=== PATIENT | female | born 1940 | race Caucasian/White ===

== ENCOUNTER 2018-10-04 11:58 | Observation (INO) | payer MEDICARE ==
[~2018-10-04] VITALS: Ht 167.6 cm; Wt 74.0 kg
[~2018-10-04 11:58] MED LIST: CALCIUM600 MG; IRBESARTAN150 MG PO; K DUR10 MEQ PO; LASIX20 MG PO; OMEPRAZOLE40 MG; TRIAMTERENE-HC1 EAC1
[2018-10-04] MEDS ORDERED: NITROGLYCERIN 2% OINT 1 GM PKT TOP ONE (12:15)
[2018-10-04] MEDS ORDERED: ONDANSETRON HCL INJ 2MG/ML 2ML 2 MG/ML VIAL IV PRN ×2 (12:15→13:15)
[2018-10-04 12:23] LABS: BASOPHILS # (AUTO) 0.1 (0.0-0.1); BASOPHILS % 1.1 % (0.0-1.0); EOSINOPHILS # (AUTO) 0.1 (0.0-0.4); EOSINOPHILS % 1.8 % (0.0-6.0); HEMOGLOBIN 13.5 g/dL (12.0-16.0); LYMPHOCYTES % 31.2 % (18.0-39.1); MEAN CORPUSCULAR HEMOGLOBIN 28.8 pg (28-32); MEAN CORPUSCULAR HGB CONC 33.8 g/dL (31-35); MEAN CORPUSCULAR VOLUME 85.3 fL (81-99); MONOCYTES # (AUTO) 0.7 (0.2-0.8); NEUTROPHILS # (AUTO) 3.6 (2.1-6.9); NEUTROPHILS % 55.6 % (38.7-80.0); PLATELET COUNT 357 x10e3/uL (140-360); RED BLOOD COUNT 4.69 x10e6/uL (3.6-5.1); RED CELL DISTRIBUTION WIDTH 13.4 % (11.7-14.4)
[2018-10-04 12:46] LABS: ALANINE AMINOTRANSFERASE 16 IU/L (0-55); ALBUMIN/GLOBULIN RATIO 1.1 (0.8-2.0); ALKALINE PHOSPHATASE 104 IU/L (40-150); AMYLASE 55 U/L (25-125); ANION GAP 14.9 mmol/L (8-16); BLOOD UREA NITROGEN 13 mg/dL (7-26); BUN/CREATININE RATIO 15 (6-25); CALCIUM 9.7 mg/dL (8.4-10.2); CARBON DIOXIDE 27 mmol/L (22-29); CHLORIDE 97 mmol/L (98-107); CREATINE KINASE 122 IU/L (29-168); CREATININE, SERUM 0.86 mg/dL (0.57-1.11); EST GLOMERULAR FILTRATION RATE > 60 ML/MIN (60-); GLUCOSE 84 mg/dL (74-118); LIPASE 24 U/L (8-78); POTASSIUM 3.9 mmol/L (3.5-5.1); SODIUM 135 mmol/L (136-145)
--- NOTE | 2018-10-04 12:46 | Diagnostic Imaging Report ---
EXAMINATION: CHEST SINGLE (PORTABLE) INDICATION: Chest pain COMPARISON: None FINDINGS: TUBES and LINES: None. LUNGS: The lungs are well-inflated. Mild biapical pleural parenchymal thickening/scarring. No focal consolidation or pulmonary edema. PLEURA: No pleural effusion or pneumothorax. HEART AND MEDIASTINUM: The cardiomediastinal silhouette is normal in size and contour. BONES AND SOFT TISSUES: No acute fracture or dislocation. UPPER ABDOMEN: No free air under the diaphragm. IMPRESSION: No focal pneumonia or pulmonary edema. Signed by: Chun Gibson MD on 10/04/2018 12:43 PM
--- NOTE | 2018-10-04 12:50 | Diagnostic Imaging Report ---
Exam: Head CT without contrast History: Memory loss of vision in left eye, felt like passing out, possible TIA Comparison studies: No prior exam is available on the PACS for comparison the time of dictation. Technique: Axial images were obtained from the skull base to the vertex. Coronal and sagittal images reconstructed from the axial data. Dose modulation, iterative reconstruction, and/or weight based adjustment of the mA/kV was utilized to reduce the radiation dose to as low as reasonably achievable. Radiation dose: Total DLP: 921 mGy*cm. Estimated effective dose: DLP x 0.015 Intravenous contrast: None Findings: Scalp: No abnormalities. Bones: No fractures, blastic or lytic lesions. Brain sulci: Appropriate for age. Ventricles: Normal in size and configuration. No hydrocephalus. Extra-axial spaces: No masses, no fluid collection. Parenchyma: No mass, acute hemorrhage or acute or chronic cortical insults. A few hypodensities in the supratentorial white matter which are mildly confluent in the bilateral periatrial white matter are nonspecific most compatible with chronic microvascular ischemic changes. Sellar/suprasellar region: No abnormalities. Craniocervical junction: Patent foramen magnum. No Chiari one malformation. Incidental findings: Atherosclerotic calcifications in the carotid siphons. IMPRESSION: 1. No acute intracranial abnormalities. 2. Chronic microvascular ischemic changes which are mildly confluent in the periatrial periventricular white matter. Signed by: Dr. Galindo Golden M.D. on 10/04/2018 12:47 PM
[2018-10-04] MEDS ORDERED: FAMOTIDINE 20 MG/2 ML VIAL IV ONE (13:00)
[2018-10-04] MEDS ORDERED: ACETAMINOPHEN 325 MG TAB PO ONE (13:00)
[2018-10-04] MEDS ORDERED: SODIUM CHLORIDE 0.9% 500ML 500 ML IV STA (13:09)
[2018-10-04] MEDS ORDERED: ENALAPRILAT IV INJ 1.25 MG/ML VIAL IV PRN (13:15)
[2018-10-04] MEDS ORDERED: DIPHENHYDRAMINE HCL INJ 50 MG/ML VIAL IV PRN (13:15)
[2018-10-04] MEDS ORDERED: NITROGLYCERIN 0.4 MG SUBL SL PRN (13:15)
[2018-10-04] MEDS ORDERED: ACETAMINOPHEN 325 MG TAB PO PRN (13:15)
[2018-10-04] MEDS ORDERED: ZOLPIDEM TARTRATE 5 MG TAB PO PRN (13:15)
[2018-10-04] MEDS ORDERED: MORPHINE SULFATE INJ 4 MG/ML INJ 1ML IV PRN (13:15)
[2018-10-04] MEDS ORDERED: SODIUM CHLORIDE FLUSH 10 ML SYR INJ PRN (13:15)
[2018-10-04] MEDS ORDERED: TORSEMIDE10 MG PO (13:33)
[2018-10-04] MEDS ORDERED: MAGNESIUM500 MG PO (13:33)
[2018-10-04] MEDS ORDERED: CALCIUM 500+D1 EACH PO (13:33)
[2018-10-04] MEDS ORDERED: LOSARTAN POTASS25 MG PEG (13:33)
[2018-10-04] MEDS ORDERED: PANTOPRAZOLE SO40 MG PO (13:33)
[2018-10-04] MEDS ORDERED: AMLODIPINE BESYL5 MG PO (13:33)
[2018-10-04] MEDS ORDERED: PRESERVISION T1 EACH PO (13:34)
--- NOTE | 2018-10-04 14:00 | NUR ---
received pt in stretcher from ER, able to walk from stretcher to bed safely. AAOx4, Resp even and unlabored. denies pain at this time. oriented to room and use of call light, call light placed within reach.
[2018-10-04 14:05] VITALS: BP 172/71
[2018-10-04 14:30] VITALS: BP 172/71
[2018-10-04] MEDS ORDERED: HYDRALAZINE HCL 20 MG/ML VIAL IV PRN (15:30)
[2018-10-04 16:21] VITALS: BP 157/67
[2018-10-04] MEDS ORDERED: FAMOTIDINE 20 MG/2 ML VIAL IV SCH (17:00)
[2018-10-04 17:13] VITALS: BP 157/67
--- NOTE | 2018-10-04 18:33 | Diagnostic Imaging Report ---
Ventilation/perfusion lung scan Clinical Information: ^Chest pain, high D-dimer Comparison: Chest radiograph 10/04/2018 Discussion: Xenon-133 gas 8.4 mCi was administered via inhalation. Dynamic images of the lungs in the posterior projection were obtained through single breath, equilibrium, and washout phases. Distribution of tracer activity is irregular throughout the lungs. There are no segmental ventilatory defects. Washout of tracer is diffusely delayed without air trapping. Perfusion images of the lungs were obtained in multiple projections following intravenous administration of approximately 8.6 mCi of Tc-99m MAA. Distribution of tracer is irregular throughout the lungs. The contours of the lungs are well demarcated. There are no segmental perfusion defects of any size. The cardiomediastinal silhouette is unremarkable. Impression: Scan findings represent a VERY LOW probability for acute pulmonary embolic disease based on the PIOPED II criteria. Scan evidence of obstructive lung disease. Signed by: Dr. Salena Dennis M.D. on 10/04/2018 6:29 PM
[2018-10-04 20:00] VITALS: BP 143/67
[2018-10-04] MEDS ORDERED: NIFEDIPINE CR 30 MG TAB PO SCH (21:00)
[2018-10-04] MEDS ORDERED: SIMVASTATIN 40 MG TAB PO SCH (21:00)
[2018-10-04 21:12] LABS: CREATINE KINASE MB 1.6 ng/mL (0-5.0)
[2018-10-04 22:40] VITALS: BP 143/67
--- NOTE | 2018-10-04 23:28 | Consultation ---
DATE OF CONSULTATION: 10/04/2018 Cardiology Consultation REASON FOR CONSULTATION: Chest pain. HISTORY OF PRESENT ILLNESS: Ms. Wing is a 78-year-old female with past medical history of hypertension, who presents to this institution with episodic chest pain. She reports left parasternal to left-sided chest pain, sharp sensation, moderate in intensity lasting several seconds up to a minute of time and sporadic. She had an episode last night, which prompted her to come to the hospital. She reports two more episodes here once earlier in the morning and in the afternoon. All episodes are not related to activity, positions, and reports that is nonpleuritic in nature. She denies any subjective palpitations, syncope, or near syncope. We had a long discussion today in terms of differential diagnosis to this chest pain. She denies any recent travels. Her legs cramp off and on, but denies any overt leg swelling. In terms of labs, she has had thus far strongly negative cardiac enzymes with a troponin of 0.00 for an EKG without any signs of ischemic EKG changes; however, D-dimer was marginally elevated. Cardiology consultation was obtained. PAST MEDICAL HISTORY: 1. Hypertension, essential. 2. GERD. PAST SURGICAL HISTORY: 1. History of partial hysterectomy in the remote past. 2. History of hand surgery in the remote past. FAMILY HISTORY: Mother in her 60s from a motor vehicle accident. Father at age of 62 from a heart attack. One brother who is older in age in his 80s with a pacemaker. SOCIAL HISTORY: She is a lifelong nonsmoker. Denies any alcohol or illicit drug use. ALLERGIES: INCLUDE CONTRAST IODINE DURING AN IVP PROCEDURE. HOME MEDICATIONS: Include Norvasc 5 mg daily, beta-carotene daily, calcium, vitamin D tablet supplement daily, losartan 25 mg daily, torsemide 10 mg p.r.n., omeprazole 40 mg daily, and Protonix 40 mg daily. REVIEW OF SYSTEMS: GENERAL: Denies any fevers, chills, or any weight changes. HEENT: No headaches, visual complaints, sore throat, or stuffy nose. RESPIRATORY: Denies any pleuritic component to the chest pain. No shortness of breath. No cough. CARDIOVASCULAR: As per HPI. GI: Has occasional GERD. No bright red blood per rectum, melena, or hematemesis. : Denies any dysuria, pyuria, or change in urinary frequency. MUSCULOSKELETAL: Has minor arthritis in her hands. HEMATOLOGY: Positive for easy bruising. No bleeding. ID: No known infectious issues. ENDOCRINE: Denies any heat or cold intolerance. NEUROLOGIC: Denies any focal weakness, numbness, tingling, seizures, headache, TIA, or stroke. Remainder of review of systems negative, otherwise as mentioned. PHYSICAL EXAMINATION: VITAL SIGNS: Height of 66 inches, weight of 177 pounds, BMI is 28.6, temperature of 97.5, pulse of 55, respiratory rate 18, blood pressure 157/67, and O2 saturation 98% on room air. GENERAL: This is a well-nourished, well-developed lady, who appears younger than stated age. She is currently in no apparent distress. HEENT: Normocephalic and atraumatic. Pupils are equal, round, and reactive to light. Extraocular movements are intact. Oropharynx is clear. NECK: No elevation of jugular venous pulsation. No carotid bruits. CARDIOVASCULAR: Regular rate and rhythm. Normal S1, S2. Soft 2/6 systolic murmur at the left lower sternal border. LUNGS: Largely clear to auscultation bilaterally with good air entry. ABDOMEN: Soft, nontender, and nondistended. Normoactive bowel sounds. No hepatosplenomegaly. BACK: No costovertebral angle tenderness. EXTREMITIES: Warm with no edema. There are 2+ bilateral femoral pulses, 2+ radial pulses, and 1+ pedal pulses. There is no edema. NEUROLOGIC: Cranial nerves II through XII are intact. Strength is 5/5. Grossly nonfocal. PSYCH: Normal fluent speech. Appropriate affect. No anxiety or delusions. LABORATORY DATA: White count 6.5, hemoglobin 13.5, hematocrit 40.0, and platelets of 357. Sodium 135, potassium 3.9, chloride 97, bicarb 27, BUN 13, creatinine 0.86, glucose of 84, AST 21, ALT 16, alkaline phosphatase 104, total protein 7.6, albumin 4.0, amylase 55, lipase 24. TSH 1.701. D-dimer 1.04. Brain CT shows chronic microvascular ischemic changes. Chest x-ray is unremarkable. EKGs are unremarkable. Cardiac biomarkers shows CK of 122, MB of 1.8, troponin 0.004. DIAGNOSES: 1. Atypical chest pain. 2. Elevated D-dimer. 3. Hypertension, essential. 4. Venous insufficiency. RECOMMENDATIONS: 1. From a cardiovascular standpoint, we had a long discussion with the patient today in terms of various causes of chest pain and different management options. 2. The patient is in favor of stress testing. We will proceed with exercise treadmill stress test tomorrow morning in light of her V/Q scan that she received. 3. Lower extremity venous duplex reviewed, showing no DVT. 4. Echocardiogram reveals normal left ventricular function and some mild hypertrophy. 5. Telemetry monitoring. 6. We will check cardiac enzymes in the morning and proceed with stress test tomorrow a.m. for ischemic risk stratification. MD ALISON Man/MARIELAL /[id number]
[2018-10-05] VITALS: BP 111/53
[2018-10-05 04:35] VITALS: BP 123/61
[2018-10-05 05:41] LABS: BASOPHILS # (AUTO) 0.1 (0.0-0.1); BASOPHILS % 1.3 % (0.0-1.0); EOSINOPHILS # (AUTO) 0.2 (0.0-0.4); EOSINOPHILS % 3.6 % (0.0-6.0); HEMATOCRIT 36.6 % (34.2-44.1); LYMPHOCYTES # (AUTO) 2.2 (1.0-3.2); LYMPHOCYTES % 38.6 % (18.0-39.1); MEAN CORPUSCULAR HGB CONC 32.8 g/dL (31-35); MEAN CORPUSCULAR VOLUME 85.3 fL (81-99); MONOCYTES # (AUTO) 0.7 (0.2-0.8); MONOCYTES % 13.1 % (4.4-11.3); NEUTROPHILS # (AUTO) 2.4 (2.1-6.9); NEUTROPHILS % 43.2 % (38.7-80.0); PLATELET COUNT 298 x10e3/uL (140-360); RED BLOOD COUNT 4.29 x10e6/uL (3.6-5.1); RED CELL DISTRIBUTION WIDTH 13.4 % (11.7-14.4)
[2018-10-05 05:54] LABS: INR 0.92; PROTHROMBIN TIME 12.9 seconds (11.9-14.5)
[2018-10-05 06:02] LABS: CHOL/HDL RATIO 3.8 (3.0-3.6); MAGNESIUM 2.3 MG/DL (1.3-2.1); PHOSPHORUS 4.1 MG/DL (2.3-4.7)
[2018-10-05 06:08] LABS: ALANINE AMINOTRANSFERASE 14 IU/L (0-55); ALBUMIN 3.3 g/dL (3.5-5.0); ALBUMIN/GLOBULIN RATIO 1.1 (0.8-2.0); ALKALINE PHOSPHATASE 91 IU/L (40-150); BLOOD UREA NITROGEN 14 mg/dL (7-26); BUN/CREATININE RATIO 18 (6-25); CALCIUM 9.3 mg/dL (8.4-10.2); CARBON DIOXIDE 27 mmol/L (22-29); CHLORIDE 101 mmol/L (98-107); EST GLOMERULAR FILTRATION RATE > 60 ML/MIN (60-); GLUCOSE 83 mg/dL (74-118); SODIUM 134 mmol/L (136-145)
[2018-10-05 06:09] LABS: CREATINE KINASE 100 IU/L (29-168)
--- NOTE | 2018-10-05 07:00 | NUR ---
BEDSIDE SHIFT REPORT RECEIVED FROM THE STAFFING BRANCH MANAGER RN. PT IS ON NPO. PT DENIES NEEDS AT THIS TIME.
[2018-10-05 08:03] VITALS: BP 147/74
[2018-10-05 09:00] VITALS: BP 151/67
[2018-10-05] MEDS ORDERED: ASPIRIN 325 MG TAB EC PO SCH (09:00)
[2018-10-05] MEDS ORDERED: LISINOPRIL 10 MG TAB PO SCH (09:00)
--- NOTE | 2018-10-05 10:00 | NUR ---
OKAY TO GIVE MORNING MEDS PER DR. Keron BRAGG.
--- NOTE | 2018-10-05 10:35 | NUR ---
PT OFF UNIT FOR PROCEDURE IN SAFE CONDITION.
--- NOTE | 2018-10-05 10:40 | NUR ---
PT BACK TO UNIT. PROCEDURE RESCHEDULED.
[2018-10-05 11:35] VITALS: BP 168/79
--- NOTE | 2018-10-05 12:30 | NUR ---
PT OFF UNIT FOR PROCEDURE IN SAFE CONDITION.
--- NOTE | 2018-10-05 13:20 | NUR ---
PT BACK TO UNIT AFTER PROCEDURE. OKAY TO RESUME DIET PER DR. Keron BRAGG.
--- NOTE | 2018-10-05 14:32 | Operative Report ---
DATE OF PROCEDURE: 10/05/2018 SURGEON: Maulik Molina MD TITLE OF THE TEST: Cardiac stress test. TECHNICAL DETAILS: The protocol is Wilmer with target heart rate at 122 per minute. RESULTS: 1. The patient exercised for total of 5 minutes and 46 seconds. 2. Heart rate increased from 65 per minute to 130 per minute. 3. Blood pressure increased from 130/80 to 100/65. 4. No chest pain. 5. No EKG changes. IMPRESSION: Negative cardiac stress test with good exercise tolerance. Limitations of negative cardiac stress test are discussed and explained. Maulik Molina MD MOJ/MODL /[id number]
[2018-10-05 15:57] VITALS: BP 115/56
--- NOTE | 2018-10-05 16:00 | NUR ---
[facility] TO DISCHARGE PT PER DR. DUARTE AND DR. Eyal BRAGG.
[2018-10-05] MEDS ORDERED: PROCARDIA XL30 MG PO (16:02)
--- NOTE | 2018-10-05 16:20 | NUR ---
PT DISCHARGED HOME SAFELY WITH FAMILY VIA PRIVATE AUTO. PT IS AAOX 4. RESPIRATION EVEN AND UNLABORED.NO DISTRESS NOTED. DISCHARGE INSTRUCTIONS GIVEN AND REVIEWED, PT VERBALIZED UNDERSTANDING. LEFT AC 20 G IV REMOVED. TIP INTACT. NO BLEEDING NOTED. PRESSURE GAUZE PLACED AND SECURED WITH TAPE. TELE # 26 REMOVED. PT ESCORTED VIA WHEEL CHAIR TO THE FRONT ENTRANCE. PT DENIED FURTHER NEEDS.
--- NOTE | 2018-10-05 16:37 | Discharge Summary ---
PRIMARY CARE DOCTOR: Memo Valverde MD FINAL DIAGNOSES: Noncardiac chest pain, possibly due to uncontrolled hypertension. SECONDARY DIAGNOSES: 1. Gastroesophageal reflux disease. 2. Chronic bradycardia. CONSULTANTS: Dr. Molina. PROCEDURES/STUDIES PERFORMED: 1. V/Q scan. 2. Bilateral lower extremity venous Doppler. 3. Stress test. 4. Echocardiogram and V/Q scan if I have not set a history per H and P. HOSPITAL COURSE: The patient's troponins were negative x3; therefore, there was no acute myocardial infarction. Telemetry monitoring was benign giving mild elevation of D-dimer; even though the suspicion is really low V/Q scan and bilateral lower extremity venous Doppler were done. Since she is allergic to iodine and both came back negative. The patient underwent a stress test, which was negative as well. At this time, the patient was seen stable for discharge home. For her uncontrolled blood pressure. Her amlodipine was switched to nifedipine and the patient will follow up with her primary care doctor in a week. I have also updated her primary care doctor as well. The patient was seen and examined today. CONDITION ON DISCHARGE: Improved. DISCHARGE MEDICATIONS: Please see medication reconciliation form. Yiching MD LUNA Cabrera/NERI /[id number] cc: [facility] Memo Valverde MD
== END 2018-10-05 16:20 | disposition home or self-care (01) ==
LOC: ER 11:58 → ERHOLD 13:09 → MED/SURG2 14:02
PROVIDERS: ADMIT Internal Medicine; ATTEND Internal Medicine
DX: R07.89 Other chest pain (principal); I10 Essential (primary) hypertension; K21.9 Gastro-esophageal reflux disease without esophagitis; Z91.041 Radiographic dye allergy status; G45.9 Transient cerebral ischemic attack, unspecified; I87.2 Venous insufficiency (chronic) (peripheral); R00.1 Bradycardia, unspecified
CPT/HCPCS: 36415 ×2; 70450; 71045; 78582; 80053 ×2; 80061; 82150; 82550 ×2; 82553 ×2; 83690; 83735; 84100; 84443; 84484 ×2; 85025 ×2; 85379; 85610; 93005; 93017; 93306; 93970; 99284; A9540; A9558; G0378 ×2; J7040

== ENCOUNTER 2022-05-11 16:07 | Emergency (ER) | payer MEDICARE ==
[~2022-05-11] VITALS: Ht 165.1 cm; Wt 65.3 kg
[~2022-05-11 16:07] MED LIST changes: +AMLODIPINE BESYL5 MG PO; +CALCIUM 500+D1 EACH PO; +LOSARTAN POTASS25 MG PEG; +MAGNESIUM500 MG PO; +PANTOPRAZOLE SO40 MG PO; +PRESERVISION T1 EACH PO; +PROCARDIA XL30 MG PO; +TORSEMIDE10 MG PO
[2022-05-11 17:12] LABS: CLARITY,URINE SL CLOUDY (CLEAR); COLOR,URINE YELLOW (YELLOW); KETONES,URINE NEGATIVE (NEGATIVE); LEUKOCYTE ESTERASE ,URINE SMALL (NEGATIVE); NITRITE,URINE POSITIVE (NEGATIVE); PROTEIN,URINE DIPSTICK NEGATIVE (NEGATIVE); URINE UROBILINOGEN 0.2 mg/dL (0.2 - 1)
[2022-05-11 17:20] LABS: BACTERIA,URINE MANY /HPF
[2022-05-11 17:59] LABS: BASOPHILS # (AUTO) 0.1 (0.0-0.1); BASOPHILS % 0.8 % (0.0-1.0); EOSINOPHILS # (AUTO) 0.1 (0.0-0.4); EOSINOPHILS % 1.2 % (0.0-6.0); HEMATOCRIT 34.7 % (34.2-44.1); HEMOGLOBIN 11.5 g/dL (12.0-16.0); LYMPHOCYTES # (AUTO) 1.9 (1.0-3.2); LYMPHOCYTES % 25.9 % (18.0-39.1); MEAN CORPUSCULAR HEMOGLOBIN 28.5 pg (28-32); MEAN CORPUSCULAR HGB CONC 33.1 g/dL (31-35); MEAN CORPUSCULAR VOLUME 86.1 fL (81-99); MONOCYTES # (AUTO) 0.8 (0.2-0.8); NEUTROPHILS # (AUTO) 4.5 (2.1-6.9); NEUTROPHILS % 60.8 % (38.7-80.0); PLATELET COUNT 341 x10e3/uL (140-360); RED BLOOD COUNT 4.03 x10e6/uL (3.6-5.1); RED CELL DISTRIBUTION WIDTH 13.2 % (11.7-14.4)
[2022-05-11] MEDS ORDERED: CEFTRIAXONE 1 GM VIAL IV ONE (18:00)
[2022-05-11 18:21] LABS: ALBUMIN 3.6 g/dL (3.5-5.0); ALBUMIN/GLOBULIN RATIO 1.2 (0.8-2.0); ANION GAP 12.1 mmol/L (8-16); CALCIUM 9.1 mg/dL (8.4-10.2); CREATININE, SERUM 0.84 mg/dL (0.57-1.11); POTASSIUM 4.1 mmol/L (3.5-5.1)
[2022-05-11] MEDS ORDERED: CEPHALEXIN500 MG PO (18:32)
[2022-05-11 18:37] VITALS: BP 148/62
== END 2022-05-11 18:55 | disposition home or self-care (01) ==
LOC: ER 16:28
DX: R33.9 Retention of urine, unspecified (principal); N39.0 Urinary tract infection, site not specified; I10 Essential (primary) hypertension
CPT/HCPCS: 36415; 51702; 80053; 81001; 85025; 99283; J0696; 51700

== ENCOUNTER 2023-11-14 01:16 | Emergency (ER) | payer MEDICARE ==
[~2023-11-14] VITALS: Ht 165.1 cm; Wt 65.3 kg
[~2023-11-14 01:16] MED LIST changes: +CEPHALEXIN500 MG PO
[2023-11-14 01:21] VITALS: PULSE 76; RESP 16; TEMP 97.6
[2023-11-14 01:46] LABS: BASOPHILS # (AUTO) 0.1 (0.0-0.1); BASOPHILS % 1.1 % (0.0-1.0); EOSINOPHILS # (AUTO) 0.3 (0.0-0.4); EOSINOPHILS % 3.7 % (0.0-6.0); HEMATOCRIT 41.3 % (34.2-44.1); HEMOGLOBIN 13.5 g/dL (12.0-16.0); LYMPHOCYTES # (AUTO) 2.9 (1.0-3.2); LYMPHOCYTES % 41.4 % (18.0-39.1); MEAN CORPUSCULAR HEMOGLOBIN 28.8 pg (28-32); MEAN CORPUSCULAR HGB CONC 32.7 g/dL (31-35); MEAN CORPUSCULAR VOLUME 88.2 fL (81-99); MONOCYTES # (AUTO) 0.8 (0.2-0.8); MONOCYTES % 10.9 % (4.4-11.3); NEUTROPHILS % 42.6 % (38.7-80.0); PLATELET COUNT 335 x10e3/uL (140-360); RED BLOOD COUNT 4.68 x10e6/uL (3.6-5.1); RED CELL DISTRIBUTION WIDTH 13.7 % (11.7-14.4); WHITE BLOOD COUNT 7.08 x10e3/uL (4.8-10.8)
[2023-11-14 01:50] LABS: INR 0.93; PARTIAL THROMBOPLASTIN TIME 28.7 seconds (23.8-35.5); PROTHROMBIN TIME 12.9 seconds (11.9-14.5)
[2023-11-14 01:58] LABS: ALBUMIN 4.2 g/dL (3.5-5.0); ALBUMIN/GLOBULIN RATIO 1.4 (0.8-2.0); ANION GAP 11.8 mmol/L (8-16); BILIRUBIN,TOTAL 0.3 mg/dL (0.2-1.2); CALCIUM 10.4 mg/dL (8.4-10.2); CREATININE, SERUM 0.88 mg/dL (0.57-1.11); POTASSIUM 3.8 mmol/L (3.5-5.1); TOTAL PROTEIN 7.3 g/dL (6.5-8.1)
[2023-11-14 03:33] VITALS: BP 156/71; PULSE 59; RESP 15; TEMP 98; O2SAT 98
== END 2023-11-14 03:37 | disposition home or self-care (01) ==
LOC: ER 01:30
DX: R00.2 Palpitations (principal); I10 Essential (primary) hypertension; I48.91 Unspecified atrial fibrillation; K21.9 Gastro-esophageal reflux disease without esophagitis; R94.31 Abnormal electrocardiogram [ECG] [EKG]
CPT/HCPCS: 36415; 71045; 80053; 84484; 85025; 85610; 85730; 93005; 99284